=== PATIENT | male | born 1940 | race Caucasian/White ===

== ENCOUNTER 2021-10-19 14:26 | Observation (INO) | payer MEDICARE, BC, OTHER ==
[~2021-10-19] VITALS: Ht 175.3 cm; Wt 99.3 kg
[2021-10-19 15:47] LABS: HEMOGLOBIN 7.8 gm/dl (14.0-17.5); RED BLOOD COUNT 2.72 M/UL (4.20-5.50); WHITE BLOOD COUNT 3.5 K/UL (4.5-11.0)
[2021-10-20 05:01] LABS: HEMOGLOBIN 8.8 gm/dl (14.0-17.5); RED BLOOD COUNT 2.96 M/UL (4.20-5.50); WHITE BLOOD COUNT 3.5 K/UL (4.5-11.0)
[2021-10-20] MEDS ORDERED: ASPIRIN81 MG PO (10:08)
[2021-10-20] MEDS ORDERED: ATORVASTATIN CA40 MG PO (10:08)
[2021-10-20] MEDS ORDERED: FLONASE 0.05% N16 GM (10:09)
[2021-10-20] MEDS ORDERED: BUMETANIDE1 MG PO (10:09)
[2021-10-20] MEDS ORDERED: DONEPEZIL HCL10 MG PO (10:09)
[2021-10-20] MEDS ORDERED: FERROUS SULFAT325 MG PO (10:09)
[2021-10-20] MEDS ORDERED: LAMOTRIGINE100 MG PO (10:10)
[2021-10-20] MEDS ORDERED: MYRBETRIQ50 MG PO (10:11)
[2021-10-20] MEDS ORDERED: LAMOTRIGINE25 MG PO (10:11)
[2021-10-20] MEDS ORDERED: TYLENOL EXTRA500 MG PO (10:28)
[2021-10-20] MEDS ORDERED: TRULICITY0.75 MG/0. SQ (10:28)
[2021-10-20] MEDS ORDERED: METOPROLOL TART25 MG PO (10:28)
[2021-10-20] MEDS ORDERED: HYDROCODON-ACE1 EAC4 PO (10:29)
[2021-10-20] MEDS ORDERED: BRILINTA90 MG PO (10:30)
[2021-10-20] MEDS ORDERED: GABAPENTIN300 MG PO (10:30)
[2021-10-20] MEDS ORDERED: ZOLOFT25 MG PO (10:30)
[2021-10-20] MEDS ORDERED: LANTUS100 UNIT/1 SQ (10:31)
[2021-10-20] MEDS ORDERED: HUMALOG100 UNIT/1 SQ (10:31)
[2021-10-20] MEDS ORDERED: NAMENDA10 MG PO (10:32)
[2021-10-20] MEDS ORDERED: SPIRONOLACTONE25 MG PO (10:32)
[2021-10-20] MEDS ORDERED: FLOMAX 0.4 MG0.4 MG PO (10:32)
[2021-10-20] MEDS ORDERED: HYDRALAZINE HCL10 MG PO (10:32)
[2021-10-20] MEDS ORDERED: LOPERAMIDE2 MG PO (10:33)
[2021-10-20] MEDS ORDERED: SIMETHICONE125 M1 PO (10:34)
[2021-10-20] MEDS ORDERED: ARTIFICIAL TEAR15 M6 OU (10:34)
[2021-10-20] MEDS ORDERED: VITAMIN D21250 MCG PO (10:34)
[2021-10-21 09:00] LABS: RED BLOOD COUNT 3.12 M/UL (4.20-5.50); WHITE BLOOD COUNT 4.2 K/UL (4.5-11.0)
--- NOTE | 2021-10-21 15:10 | NUR ---
[facility] NOTIFIED OF NEED FOR TRANSPORT.
--- NOTE | 2021-10-21 15:36 | NUR ---
REPORT CALLED TO REID AT [facility] [place].
== END 2021-10-21 20:16 ==
LOC: ER1 14:26 → CDU 17:41 → MED SURG 4 17:41 → CDU 17:41 → MED SURG 4 10-20 08:13
PROVIDERS: Emergency Medicine; Internal Medicine; ADMIT Internal Medicine Infectious Disease
DX: E87.5 Hyperkalemia (principal); Z20.822 Contact with and (suspected) exposure to COVID-19; E11.22 Type 2 diabetes mellitus with diabetic chronic kidney disease; I12.9 Hypertensive chronic kidney disease with stage 1 through stage 4 chronic kidney disease, or unspecified chronic kidney disease; N18.30 Chronic kidney disease, stage 3 unspecified; E11.42 Type 2 diabetes mellitus with diabetic polyneuropathy; I25.10 Atherosclerotic heart disease of native coronary artery without angina pectoris; D63.1 Anemia in chronic kidney disease; F03.90 Unspecified dementia, unspecified severity, without behavioral disturbance, psychotic disturbance, mood disturbance, and anxiety; N17.9 Acute kidney failure, unspecified; I87.2 Venous insufficiency (chronic) (peripheral); G89.4 Chronic pain syndrome; N40.0 Benign prostatic hyperplasia without lower urinary tract symptoms; Z79.4 Long term (current) use of insulin; Z79.82 Long term (current) use of aspirin; Z79.899 Other long term (current) drug therapy; Z88.2 Allergy status to sulfonamides; Z95.5 Presence of coronary angioplasty implant and graft
CPT/HCPCS: 36415; 71045; 80048; 80053; 82272; 82397; 82550; 82553; 82607; 82728; 82746; 82962; 83036; 83540; 83550; 83735; 84100; 84443; 84484; 85025; 85045; 86850; 86900; 86901; 86920; 87040; 93005; 94640; 94664; 96372; 96374; 96375; 96376; 99285; G0378; J0696; J1650; J7030; U0002